=== PATIENT | female | born 1950 | race Hispanic/Latino ===

== ENCOUNTER → 2019-06-11 | Outpatient (CLI) | payer MEDICARE, BC ==
[~2019-06-11] MED LIST: IOPAMIDOL 370 MG/ML 200 ML INFUS..BTL INJ ONE; SODIUM CHLORIDE 0.9% 50ML 50 ML ONE
[2019-06-11 11:10] LABS: BLOOD UREA NITROGEN 19 mg/dL (7-26); BUN/CREATININE RATIO 22 (6-25); CREATININE, SERUM 0.85 mg/dL (0.57-1.11); EST GLOMERULAR FILTRATION RATE > 60 ML/MIN (60-)
--- NOTE | 2019-06-11 12:30 | Diagnostic Imaging Report ---
EXAM: CT Abdomen and Pelvis WITHOUT and WITH intravenous contrast - renal mass protocol INDICATION: Renal mass COMPARISON: Renal ultrasound of 02/10/2019 TECHNIQUE: Abdomen and pelvis were scanned utilizing a multidetector helical scanner from the lung base to the pubic symphysis before and after administration of IV contrast. Coronal and sagittal reformations were obtained. Renal mass protocol was used. Scan was performed prior to contrast administration and during arterial and delayed phases. IV CONTRAST: 100 mL of Isovue 370 ORAL CONTRAST: Water COMPLICATIONS: None RADIATION DOSE: Total DLP: 1531.6 mGy*cm Dose modulation, iterative reconstruction, and/or weight based adjustment of the mA/kV was utilized to reduce the radiation dose to as low as reasonably achievable. FINDINGS: LOWER THORAX: Bibasilar dependent subsegmental atelectasis. Small hiatal hernia. HEPATOBILIARY: No focal hepatic lesions. No biliary ductal dilatation. Calcified gallstone within the gallbladder. No CT evidence of cholecystitis. SPLEEN: No splenomegaly. Accessory spleen with punctate calcified granuloma. PANCREAS: No focal masses or ductal dilatation. ADRENALS: No adrenal nodules. KIDNEYS/URETERS: 3.1 cm left upper pole simple renal cyst. 2.1 cm right upper pole renal cyst without soft tissue component or enhancement. Subcentimeter bilateral additional renal hypodensities also likely represent simple cysts. No renal calculi or hydronephrosis. Delayed excretory phase images demonstrate opacification of the entire course of both ureters with no filling defect to suggest urothelial mass lesion. PELVIC ORGANS/BLADDER: No bladder mass or calculus. PERITONEUM / RETROPERITONEUM: No free air or fluid. LYMPH NODES: No lymphadenopathy. VESSELS: Minimal scattered atherosclerotic calcifications of the nonaneurysmal abdominal aorta and major branches. GI TRACT: No abnormal bowel wall thickening. No bowel obstruction. Normal appendix. BONES AND SOFT TISSUES: No acute osseous injury. No suspicious lytic or blastic lesions. Grade 1 anterolisthesis at L5-S1. IMPRESSION: Bilateral renal cysts as above with no enhancement or suspicious features. Cholelithiasis. No CT evidence of cholecystitis. Signed by: Ivette Soto MD on 06/11/2019 12:26 PM
== END ==
LOC: CT 10:21
PROVIDERS: ATTEND Urology
DX: D41.00 Neoplasm of uncertain behavior of unspecified kidney (principal)
CPT/HCPCS: 36415; 74178; 82565; 84520; Q9967

== ENCOUNTER → 2019-12-12 | Outpatient (CLI) | payer MEDICARE, BC ==
--- NOTE | 2019-12-12 11:28 | Diagnostic Imaging Report ---
Renal ultrasound, 12/12/2019. History: Renal cysts. Comparison: CT 06/11/2019, ultrasound 02/10/2019. Discussion: Transverse and longitudinal images of the kidneys were obtained demonstrating normal renal sizes and echogenicities. There is no evidence of hydronephrosis, suspicious mass, or renal calculus. The right kidney measures 10.7 cm and the left kidney measures 11.0 cm in length. Renal cortex measures 1.8 and 2.1 cm respectively. Bilateral oval anechoic structures are again identified. The one on the right measures 2.2 x 1.8 x 1.8 cm and contains a single thin septation. The one on the left measures 2.8 x 2.3 x 2.9 cm. The urinary bladder is unremarkable. Bilateral ureteral jets are identified. Bladder volume measures 30 mL. There is no evidence of free fluid. A gallstone is again noted. IMPRESSION: 1. Bilateral benign renal cysts. 2. Cholelithiasis. Signed by: Parminder Garcia on 12/12/2019 11:25 AM
== END ==
LOC: US 09:55
PROVIDERS: ATTEND Urology
DX: N28.1 Cyst of kidney, acquired (principal)
CPT/HCPCS: 76770

== ENCOUNTER → 2021-07-20 | Outpatient (CLI) | payer MEDICARE, BC | LOC: US 10:13 | PROVIDERS: ATTEND Urology | DX: N28.1 Cyst of kidney, acquired (principal) | CPT/HCPCS: 76770 ==

== ENCOUNTER → 2022-12-20 | Outpatient (CLI) | payer MEDICARE, BC ==
[~2022-12-20] MED LIST changes: +IOPAMIDOL 370 MG/ML 100 ML INFUS..BTL INJ ONE; -IOPAMIDOL 370 MG/ML 200 ML INFUS..BTL INJ ONE; -SODIUM CHLORIDE 0.9% 50ML 50 ML ONE
== END ==
LOC: CT 09:40
PROVIDERS: ATTEND Urology
DX: N28.1 Cyst of kidney, acquired (principal)
CPT/HCPCS: 36415; 74178; 82565; 84520; Q9967